=== PATIENT | male | born 1985 | race Caucasian/White ===

== ENCOUNTER → 2023-06-18 12:28 | Outpatient (CLI) | payer BC, SELFPAY ==
--- NOTE | ~2023-06-18 | US_ITS ---
Testicular ultrasound with doppler. Indication: Right testicular pain. Technique: Real-time sonography the scrotum was performed. Color flow Doppler and Doppler spectral an alysis were performed. Findings: The testes are homogeneous in echotexture bilaterally. There is no evidence of an intrates ticular mass. The right testis measures 3.9 x 2.3 x 2.8 cm and the left 4.1 x 2.4 x 2.5 cm. There is color-flow seen to both testes. Arterial and venous spectral waveforms are seen in both testes. There is no sonographic evidence of torsion. The head of the epididymis is visualized bilaterally and is within normal limits. Minimal bilateral hydroceles are present. Impression: No significant abnormality identified. Reviewed, dictated and finalized at [facility]. NCIAL SYSTEMS MANAGER Impression: No significant abnormality identified.
--- NOTE | ~2023-06-18 | XR_ITS ---
EXAMINATION: XR chest 2V 06/18/2023 12:45 INDICATION: Chest pain PROCEDURE: 2 view chest COMPARISON: No prior studies for comparison. FINDINGS: The lungs are clear. The cardiomediastinal silhouette is within normal limits. There are no pleural effusions. There is no pneumothorax suspected. IMPRESSION: 1: NO ACUTE CARDIOPULMONARY DISEASE. Reviewed, dictated and finalized at location [facility]. ER OPERATOR
== END ==
PROVIDERS: PCP Emergency Medicine; Visit Provider Emergency Medicine
DX: N50.811 Right testicular pain (principal); R07.89 Other chest pain
CPT/HCPCS: 71046; 76870; 93976